=== PATIENT | female | born 1970 | race Caucasian/White ===

== ENCOUNTER 2023-12-26 07:02 | Inpatient (IN) | payer MEDICAID, OTHER ==
[~2023-12-26] VITALS: Ht 170.2 cm; Wt 101.9 kg
[2023-12-26 07:45] VITALS: PULSE 84; RESP 12; O2SAT 97
[2023-12-26] MEDS ORDERED: KETOROLAC TROMETH 30 MG/ML 1ML VIAL IV ONE (07:45)
[2023-12-26] MEDS: ONDANSETRON HCL 4 MG/2 ML VIAL IV ONE (08:13)
[2023-12-26] MEDS: MORPHINE SULFATE 4 MG/ML SYR/VIAL IV ONE (08:14)
[2023-12-26] MEDS: MORPHINE SULFATE 4 MG/ML SYR/VIAL ONE (08:14)
[2023-12-26] MEDS: HYDROmorphone HCL 2 MG/ML VL/or syr IV ONE (08:15)
[2023-12-26 08:19] LABS: Alanine Aminotransferase 53 U/L (7-40); Alkaline Phosphatase 100 U/L (46-116); Anion Gap 16 (5-15); Aspartate Aminotransferase 30 U/L (13-40); Bilirubin, Total 0.7 mg/dL (0.2-1.0); Blood Urea Nitrogen 14 mg/dL (9-23); Calcium 9.2 mg/dL (8.7-10.4); Carbon Dioxide 18 mmol/L (20-30); Chloride 109 mmol/L (98-107); Glucose 121 mg/dL (74-106); Potassium 3.8 mmol/L (3.5-5.1); Sodium 143 mmol/L (136-145); Total Protein 7.7 g/dL (5.7-8.2)
[2023-12-26 08:28] LABS: Urine Bacteria None Seen /hpf (None Seen)
[2023-12-26 08:28] LABS: Basophils # (auto) 0 10 ^3/uL (0-0.2); Basophils % (auto) 0.3 % (0.0-2.0); Eosinophils # (auto) 0 10 ^3/uL (0-0.8); Hematocrit 40.8 % (36.0-46.0); Hemoglobin 14.1 g/dL (12.2-16.2); Lymphocytes # (auto) 0.8 10 ^3/uL (0.4-5.4); Lymphocytes % (auto) 7.5 % (10.0-50.0); Mean Corpuscular Hemoglobin 30.1 pg (28.0-32.0); Mean Corpuscular Hgb Conc. 34.5 g/dL (32.0-36.0); Mean Corpuscular Volume 87.5 fL (80.0-100.0); Monocytes # (auto) 0.6 10 ^3/uL (0-1.3); Monocytes % (auto) 5.9 % (0.0-12.0); Neutrophils # (auto) 9.2 10 ^3/uL (1.6-8.6); Neutrophils % (auto) 86.3 % (37.0-80.0); Platelet Count (auto) 263 10^3/uL (140-450); Red Blood Cells 4.66 10^6/uL (4.0-5.20); White Blood Cell 10.6 10^3/uL (4.4-10.8)
[2023-12-26 08:39] LABS: Urine Blood Negative /uL (Negative); Urine Clarity Clear (Clear); Urine Color Light-Yellow (Yellow); Urine Hyaline Cast FEW /lpf (0 - 2); Urine Mucus FEW (None Seen); Urine Protein, UAD Negative (Negative); Urine Specific Gravity 1.022 (1.001-1.035); Urine Urobilinogen Normal (Negative); Urine WBC 1 /hpf (0 - 5)
[2023-12-26] MEDS: SODIUM CHLORIDE 0.9% 1,000 ML IV ONE (08:58)
[2023-12-26] MEDS: KETOROLAC TROMETH 30 MG/ML 1ML VIAL IV ONE (09:04)
[2023-12-26] MEDS: HYDROcodone-ACET 10/325MG TAB PO ONE (09:04)
[2023-12-26] MEDS ORDERED: NITROGLYCERIN 0.4 MG SL TAB SL PRN (11:00)
[2023-12-26] MEDS: ENOXAPARIN SOD 40 MG/0.4 ML SYRINGE SC SCH (11:08)
[2023-12-26] MEDS: SODIUM CHLORIDE 0.9% 1,000 ML IV SCH (11:08)
[2023-12-26] MEDS: MORPHINE SULFATE INJ 2 MG/ml SYRG IV PRN (11:41)
[2023-12-26] MEDS: ONDANSETRON HCL 4 MG/2 ML VIAL IV PRN (11:42)
[2023-12-26 12:49] LABS: INR 1.07 (0.9-1.15); Prothrombin Time 11.3 sec (9.3-11.8)
[2023-12-26 17:08] VITALS: BP 130/82; PULSE 85; RESP 18; TEMP 98.4; O2SAT 94
[2023-12-26 20:00] VITALS: RESP 18; O2SAT 96
[2023-12-26 21:00] VITALS: BP 130/81; PULSE 91; RESP 18; TEMP 98; O2SAT 92
[2023-12-26] MEDS ORDERED: HYDROcodone-ACET 5/325MG TAB PO PRN (23:15)
[2023-12-26 23:43] VITALS: BP 130/81; PULSE 91; RESP 18; TEMP 98; O2SAT 92
[2023-12-27] VITALS (9 sets, daily range): BP systolic 101–143; BP diastolic 75–93; PULSE 76–102; RESP 13–20; TEMP 82–98.3; O2SAT 80–97
[2023-12-27 06:53] LABS: Basophils # (auto) 0 10 ^3/uL (0-0.2); Basophils % (auto) 0.5 % (0.0-2.0); Eosinophils # (auto) 0 10 ^3/uL (0-0.8); Eosinophils % (auto) 0.5 % (0.0-7.0); Hematocrit 31.9 % (36.0-46.0); Lymphocytes # (auto) 1.5 10 ^3/uL (0.4-5.4); Mean Corpuscular Hemoglobin 30.4 pg (28.0-32.0); Mean Corpuscular Hgb Conc. 34.4 g/dL (32.0-36.0); Mean Corpuscular Volume 88.4 fL (80.0-100.0); Monocytes # (auto) 0.4 10 ^3/uL (0-1.3); Monocytes % (auto) 9.3 % (0.0-12.0); Neutrophils # (auto) 2.5 10 ^3/uL (1.6-8.6); Neutrophils % (auto) 56.7 % (37.0-80.0); Nucleated Red Blood Cells % 0.1 %; Platelet Count (auto) 185 10^3/uL (140-450); Red Blood Cells 3.61 10^6/uL (4.0-5.20); Red Cell Distribution Width 14.6 % (11.8-14.3); White Blood Cell 4.5 10^3/uL (4.4-10.8)
[2023-12-27 07:13] LABS: Alanine Aminotransferase 32 U/L (7-40); Albumin 3.6 g/dL (3.2-4.8); Alkaline Phosphatase 76 U/L (46-116); Anion Gap 6 (5-15); Aspartate Aminotransferase 17 U/L (13-40); BUN/Creatinine Ratio 15.4 (10.0-20.0); Bilirubin, Total 0.9 mg/dL (0.2-1.0); Blood Urea Nitrogen 10 mg/dL (9-23); Calcium 8.2 mg/dL (8.7-10.4); Carbon Dioxide 26 mmol/L (20-30); Chloride 109 mmol/L (98-107); Glucose 106 mg/dL (74-106); Potassium 3.9 mmol/L (3.5-5.1); Sodium 141 mmol/L (136-145); Total Protein 5.7 g/dL (5.7-8.2)
[2023-12-27] MEDS: BUPIVACAINE 0.25% INJ 50ML VIAL ONE (09:34)
[2023-12-27] MEDS: ceFAZolin 2 GM/D5W100ml 100 ML IV ONE (09:44)
[2023-12-27] MEDS: ROPIVACAINE 0.5% (5MG/ML) 20ML AMPULE IJ ONE (09:53)
[2023-12-27] MEDS ORDERED: ROCURONIUM 10MG/ML 10ML VIAL IV ONE (09:58)
[2023-12-27] MEDS ORDERED: ONDANSETRON HCL 4 MG/2 ML VIAL ONE (09:58)
[2023-12-27] MEDS ORDERED: LIDOCAINE HCL 100 MG/5ML (2%) SYRG INJ IV ONE (09:59)
[2023-12-27] MEDS ORDERED: MIDAZOLAM HCL 2MG/2ML 2ml VIAL (1mg/ml) ONE (10:21)
[2023-12-27] MEDS: VANCOMYCIN HCL 1000 MG VL ONE (10:30)
[2023-12-27] MEDS ORDERED: HYDROmorphone HCL 2 MG/ML VL/or syr ONE (10:46)
[2023-12-27] MEDS ORDERED: SUGAMMADEX 200mg/2ml Vial (100MG/ML) IV ONE (11:11)
[2023-12-27] MEDS ORDERED: KETOROLAC TROMETH 30 MG/ML 1ML VIAL ONE (11:12)
[2023-12-27] MEDS ORDERED: MORPHINE SULFATE 4 MG/ML SYR/VIAL IV PRN (11:30)
[2023-12-27] MEDS: ONDANSETRON HCL 4 MG/2 ML VIAL IV ONE (11:30)
[2023-12-27] MEDS ORDERED: NALOXONE HCL 0.4 MG/ML VIAL IV PRN (11:30)
[2023-12-27] MEDS: MORPHINE SULFATE 4 MG/ML SYR/VIAL IV PRN (14:55)
[2023-12-27] MEDS: HYDROcodone-ACET 5/325MG TAB PO PRN (20:40)
[2023-12-28] VITALS (8 sets, daily range): BP systolic 110–141; BP diastolic 64–90; PULSE 80–91; RESP 16–19; TEMP 97.9–98.5; O2SAT 93–97
[2023-12-28] MEDS: HYDROcodone-ACET 5/325MG TAB PO PRN (00:38)
[2023-12-29] VITALS (7 sets, daily range): BP systolic 113–160; BP diastolic 70–89; PULSE 62–101; RESP 16–19; TEMP 97.9–98.6; O2SAT 90–97
[2023-12-30 01:00] VITALS: BP 129/73; PULSE 86; RESP 18; TEMP 97.1; O2SAT 94
[2023-12-30 06:15] LABS: Basophils # (auto) 0 10 ^3/uL (0-0.2); Basophils % (auto) 0.6 % (0.0-2.0); Eosinophils # (auto) 0.1 10 ^3/uL (0-0.8); Eosinophils % (auto) 1.3 % (0.0-7.0); Hematocrit 28.5 % (36.0-46.0); Hemoglobin 9.9 g/dL (12.2-16.2); Lymphocytes # (auto) 1.2 10 ^3/uL (0.4-5.4); Lymphocytes % (auto) 26.4 % (10.0-50.0); Mean Corpuscular Hemoglobin 31.6 pg (28.0-32.0); Mean Corpuscular Hgb Conc. 34.8 g/dL (32.0-36.0); Mean Corpuscular Volume 90.8 fL (80.0-100.0); Monocytes # (auto) 0.3 10 ^3/uL (0-1.3); Monocytes % (auto) 7.8 % (0.0-12.0); Neutrophils # (auto) 2.8 10 ^3/uL (1.6-8.6); Neutrophils % (auto) 63.9 % (37.0-80.0); Nucleated Red Blood Cells % 0.3 %; Platelet Count (auto) 211 10^3/uL (140-450); Red Blood Cells 3.14 10^6/uL (4.0-5.20); Red Cell Distribution Width 14.4 % (11.8-14.3); White Blood Cell 4.4 10^3/uL (4.4-10.8)
[2023-12-30 06:21] LABS: Alanine Aminotransferase 38 U/L (7-40); Albumin 3.7 g/dL (3.2-4.8); Alkaline Phosphatase 82 U/L (46-116); Anion Gap 9 (5-15); Aspartate Aminotransferase 18 U/L (13-40); Bilirubin, Total 0.9 mg/dL (0.2-1.0); Carbon Dioxide 24 mmol/L (20-30); Chloride 105 mmol/L (98-107); Glucose 106 mg/dL (74-106); Potassium 3.6 mmol/L (3.5-5.1); Sodium 138 mmol/L (136-145); Total Protein 6.1 g/dL (5.7-8.2)
[2023-12-30 06:27] LABS: BUN/Creatinine Ratio 9.6 (10.0-20.0); Blood Urea Nitrogen < 5 mg/dL (9-23)
[2023-12-30 09:00] VITALS: BP 114/87; PULSE 86; RESP 22; TEMP 98.3; O2SAT 94
[2023-12-30 13:00] VITALS: BP 130/86; PULSE 86; RESP 20; TEMP 98.3; O2SAT 96
[2023-12-30 17:00] VITALS: BP 113/82; PULSE 85; RESP 20; TEMP 97.9; O2SAT 95
[2023-12-30 20:00] VITALS: PULSE 90; RESP 16; O2SAT 95
[2023-12-30] MEDS: DOCUSATE SOD 100 MG CAP PO PRN (20:31)
[2023-12-30 21:00] VITALS: BP 140/92; PULSE 90; RESP 14; TEMP 97.7; O2SAT 95
[2023-12-31 01:00] VITALS: BP 120/80; PULSE 83; RESP 14; TEMP 97.7; O2SAT 95
[2023-12-31 05:00] VITALS: BP 119/91; PULSE 83; RESP 14; TEMP 98.3; O2SAT 95
[2023-12-31 09:00] VITALS: BP 126/83; PULSE 80; RESP 18; TEMP 97.9; O2SAT 94
[2023-12-31] MEDS ORDERED: IBUP1TAB5 PO (10:05)
[2023-12-31] MEDS ORDERED: HYDR-4902 PO (10:05)
[2023-12-31] MEDS ORDERED: ENOX30IN5 SC (10:09)
[2023-12-31 13:00] VITALS: BP 130/91; PULSE 90; RESP 18; TEMP 97.7; O2SAT 95
== END 2023-12-31 15:22 | disposition home health service (06) | DRG 308 ==
LOC: EDBD 07:02 → ER 07:02 → OVERFLOW 10:52 → CENTRAL 17:06
PROVIDERS: ADMIT Nurse Practitioner Family; ATTEND Internal Medicine Geriatric Medicine
PROC: 0QS704Z Reposition Left Upper Femur with Internal Fixation Device, Open Approach (ICD-10-PCS; principal; 2023-12-27 10:22)
DX: S72.142A Displaced intertrochanteric fracture of left femur, initial encounter for closed fracture (principal); Z68.41 Body mass index [BMI] 40.0-44.9, adult; D62 Acute posthemorrhagic anemia; E66.01 Morbid (severe) obesity due to excess calories; W01.0XXA Fall on same level from slipping, tripping and stumbling without subsequent striking against object, initial encounter; Z74.01 Bed confinement status; Z83.3 Family history of diabetes mellitus; Z90.49 Acquired absence of other specified parts of digestive tract; Z98.51 Tubal ligation status; Y93.89 Activity, other specified; Y92.89 Other specified places as the place of occurrence of the external cause; Y99.8 Other external cause status
CPT/HCPCS: 36415; 71045; 72170; 73502; 76000; 80053; 81001; 85025; 85610; 86850; 86900; 86901; 87081; 87086; 96361; 96372; 96374; 96375; 97116; 97163; 97530; A4565; G0378; J1885; J2250; J2405; J3490